=== PATIENT | female | born 1975 | race Caucasian/White ===

== ENCOUNTER 2016-11-08 10:50 | Observation (INO) | payer BC ==
--- NOTE | ~2016-11-08 | CN ---
Consultation Report [facility] [address] [place]. [address] NAME: RAMO DICKSON : 77 STATUS : ADM Gracie PAT#: [id number] AGE: 40 ADM/REG DATE : 11/08/16 MR#: [id number] REPORT SERV DATE: 11/09/16 DICTATED BY: JEANIE ESCUDERO DATE: 11/08/16 REPORT STATUS : Draft TRANSCRIBED BY: MODL DATE: 11/08/16 CONSULTATION DATE OF CONSULTATION: 11/08/2016 REASON FOR CONSULTATION: Consulted for medical management. REQUESTING PHYSICIAN: Silvia Esquivel D.P.M. PRIMARY CARE PHYSICIAN: Previously she saw Dr. Kendrick, who she states now she has no PCP. SURGEON: She is seen Charles Acevedo M.D., in the past for a near total thyroidectomy and presently is Silvia Esquivel D.P.M., for left Achilles tendon rupture repair. HISTORY OF PRESENT ILLNESS: This is a very pleasant 40-year-old, morbidly obese, female with a history of thyroid goiter, hypothyroidism a near total thyroidectomy in 03/13/2008, arthritis, endometriosis, and DJD. We have been consulted to help medical management on the patient. In the interim of post surgery for her left Achilles tendon rupture repair. It was noted that the patient had a drop in her O2 saturation when she is asleep. There is a suspect for obstructive sleep apnea. The patient's history was obtained through interview with the patient. Her brother coupled with review of [facility], [facility], therapeutic consultant's notes and old medical records. PAST MEDICAL HISTORY: 1. Hypothyroid. The patient wears glasses. 2. Morbid obesity. Weight 310 pounds 140.6 kilograms and a BMI of 51.5. 3. Cardiac murmur. 4. Thyroid goiter. 5. Oleg's thyroiditis. 6. DJD. 7. Arthritis. 8. Disk herniation at L4-L5. 9. GERD. 10.Anxiety. 11.Endometriosis. HOME MEDICATION: Aspirin 81 mg p.o. daily, Caltrate 600 plus D tablet 600 mg p.o. daily, vitamin D3 2000 units p.o. daily, levothyroxine 175 mcg p.o. at 2300 hours at night ALLERGIES: NO KNOWN ALLERGIES. SOCIAL HISTORY: The patient was previously for 12 years. She is now a , has two children. Lives with her significant other. No illicit drug use. No alcohol use. No Consultation Report [address] [place]. [address] NAME: RAMO DICKSON : 77 STATUS : ADM Gracie PAT#: [id number] AGE: 40 ADM/REG DATE : 11/08/16 MR#: [id number] REPORT SERV DATE: 11/09/16 DICTATED BY: JEANIE ESCUDERO DATE: 11/08/16 REPORT STATUS : Draft TRANSCRIBED BY: MODZainab DATE: 11/08/16 smoking. Resides in a single-level home. No problems with activity. FAMILY HISTORY: Mother had arthritis and DDD. Father had coronary artery disease, diabetes, obstructive sleep apnea on CPAP. She has one brother who has obstructive sleep apnea on CPAP. PAST SURGICAL HISTORY: 1. Hysterectomy in 2001. 2. Cholecystectomy in 2008. 3. Tonsillectomy as a child. 4. Ovarian cyst. 5. Lap surgery for endometriosis in 2004. 6. Near-total thyroidectomy 03/13/2008. REVIEW OF SYSTEMS: Negative other than what is included in HPI. The patient complains of no shortness of breath. No nausea and vomiting. No chest pain. No fever. No diarrhea or abdominal pain. PHYSICAL EXAMINATION: VITAL SIGNS: Vital signs from today blood pressure 142/82, temperature 97.1, heart rate 83, O2 saturation 97% on 2 L nasal cannula, when awake, respiratory rate 16. GENERAL: This is a morbid obese female, who is resting in bed in no acute distress. 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 NEURO: Her head is atraumatic. She is normocephalic. She is alert, oriented x3. Her cranial nerves 2-12 are grossly intact. Her mood is pleasant and appropriate. NECK: Supple. Trachea is midline. No JVD noted. No lymphadenopathy. EENT: Sclerae are nonicteric. Pupils are equal, reactive to light. Her nares are patent. Mucous membranes are moist. Her tongue is midline without deviation. Her soft palate rises equally on phonation. CHEST: There is no pain with palpation. LUNGS: Clear to auscultation bilaterally. She has normal respiratory effort. No increased work of breathing with conversation. CARDIOVASCULAR: S1, S2. No obvious murmurs, rubs, or gallops. Rhythm is regular on telemetry, at a rate of 88. ABDOMEN: Obese, soft, nontender with active bowel sounds. No palpable organomegaly. Her last bowel movement was 11/08/2016. EXTREMITIES: Right lower extremity no edema. Normal distal pulses. No calf tenderness. Left lower extremity is in a cast from the upper part of her toes to beneath her knee. SKIN: Warm and dry. No unusual rashes or lesions. Normal color and turgor. PSYCH: The patient is pleasant and cooperative. Appropriate mood and affect. SURGICAL WOUND SITE: Dressing and cast is clean, dry, and intact. LABORATORY DATA: No present labs on chart those will be ordered. She had an EKG on 10/09/2016, that showed a normal sinus rhythm and a normal EKG with a rate of 90. MRI was done of her left ankle, which showed nearly full-thickness tear of her Achilles tendon. Consultation Report [address] [place]. [address] NAME: RAMO DICKSON : 77 STATUS : ADM Gracie PAT#: [id number] AGE: 40 ADM/REG DATE : 11/08/16 MR#: [id number] REPORT SERV DATE: 11/09/16 DICTATED BY: JEANIE ESCUDERO DATE: 11/08/16 REPORT STATUS : Draft TRANSCRIBED BY: ROMAIN DATE: 11/08/16 Soft tissue edema and edema in the soleus and gastrocnemius muscles. ASSESSMENT/PLAN: 1. Obstructive sleep apnea. The patient has no history of sleep apnea. Her brother and her father does have sleep apnea and uses CPAP at home. Noted postoperatively that her O2 sats dropped to 88% when she fell asleep, when awaking to use incentive spirometer her sats were back up to 97%. She will be placed on CPAP at h.s., per RT. We will order continuous O2 saturation monitoring. Then she will probably post discharge from the hospital, need to look in to sleep monitoring and possible CPAP use at home. 2. Gastroesophageal reflux disease. Aware. She will have Mylanta p.r.n. as needed for indigestion. 3. Hypothyroidism. She has a history we are aware. She states she has no primary care doctor at the present time. She has been to outpatient clinics such as [facility] and previously saw Dr. Kendrick, who managed her thyroid medications. We will check a TSH and a free-T4 on her labs and continue her levothyroxine. 4. Elevated glucose. Spot check of blood fingerstick blood sugar was 189, but she did have Decadron in surgery, she has just returned to the floor postoperatively and ate dinner. Blood sugar was 189, we will recheck her blood sugar at 1 a.m. and staff can call if it is greater than 150. She has no previous diagnosis of diabetes. A.m. labs ordered are BMP, magnesium, CBC, TSH, free T4, and we will check hemoglobin A1c. The hospitalist group would like to thank you for this consultation and let us know if we can be of any further assistance. ROEL Jeanie Escudero NP / [id number] CC: Silvia Esquivel D.P.M.
--- NOTE | ~2016-11-08 | OP ---
Record Of Operation [facility] [address] [place]. [address] NAME: RAMO DICKSON : 77 STATUS : DIS Gracie PAT#: [id number] AGE: 41 ADM/REG DATE : 11/08/16 MR#: [id number] REPORT SERV DATE: 11/23/16 DICTATED BY: JAYESH CAMPOVERDE DATE: 11/23/16 REPORT STATUS : Draft TRANSCRIBED BY: MODL DATE: 11/23/16 DATE OF PROCEDURE: 11/08/2016 PREOPERATIVE DIAGNOSIS: Left severe Achilles rupture. POSTOPERATIVE DIAGNOSIS: Left severe Achilles rupture. PROCEDURES: 1. Left Achilles severe rupture primary repair. 2. Left flexor hallucis longus tendon transfer. 3. Left acellular dermal grafting to Achilles rupture repair. 4. Left gastroc recession. SURGEON: Ramona ButlerPYulissa. ANESTHESIA: General local anesthetic. ESTIMATED BLOOD LOSS: Minimal. COMPLICATIONS: None. INJECTABLES: Approximately 40 mL of a 1:1 mixture of 1% lidocaine plain and 0.5% Marcaine plain. MATERIALS: Include Arthrex FiberWire suture with tenodesis anchors, acellular dermal grafting, 2-0 and 4-0 Vicryl, 4-0 nylon. PROCEDURE IN DETAIL: Under mild sedation, the patient was brought to the operating room, placed on the operating room table in a prone position. Following the general anesthesia, local anesthesia was obtained about the patient's left leg. Left foot, ankle, and lower leg were scrubbed, prepped, and draped in usual aseptic manner. Attention was directed to the procedure. Procedure #1 is a left severe Achilles rupture with significant tendon gapping. Attention was directed to the posterior aspect of the patient's left Achilles tendon where an approximate 6-8 cm incision was made medial and parallel to the Achilles tendon. The incision was deepened to subcutaneous tissue with care being taken to identify and retract all vital neurovascular structures. All bleeders were cauterized and ligated as necessary. Blunt dissection was continued down to the level of the peritenon and incision was made from inferior to superior exposing the completely ruptured Achilles tendon. There was significant fracture gapping and severely calcific tendon noted within the mid substance region. The tendon itself was partially avulsed off the posterior calcaneus. Fracture gap measured approximately 6-8 cm. Due to the severity of the fracture gapping and the nonviable nature of the Achilles tendon with severe tendinosis and calcific changes, augmentation with an FHL transfer was deemed necessary. At this time, attention was directed to the next procedure. Record Of Operation [facility] [address] [place] [address] NAME: RAMO DICKSON : 77 STATUS : DIS Gracie PAT#: [id number] AGE: 41 ADM/REG DATE : 11/08/16 MR#: [id number] REPORT SERV DATE: 11/23/16 DICTATED BY: JAYESH CAMPOVERDE DATE: 11/23/16 REPORT STATUS : Draft TRANSCRIBED BY: MODL DATE: 11/23/16 Next procedure is left flexor hallucis longus tendon deep transfer into the posterior and superior aspect of the calcaneus. Attention now was directed to the FHL transfer where a blunt dissection was continued down to the level of the posterior aspect of the ankle joint. A linear capsular incision was made with care being taken to identify and retract all vital neurovascular structures. Blunt dissection was continued down to the level of flexor hallucis longus tendon sheath. Dorsiflexion and plantar flexion of the great toe revealed excursion of the tendon with deep retraction with an [place] retractor to protect the neurovascular bundle. The FHL tendon was isolated. The great toe was maximally plantar flexed and the foot was maximally plantar flexed, and then a #11 blade was utilized to sever the FHL tendon deep within the tarsal tunnel region with care being taken to bluntly retract the neurovascular bundle. Next, a FiberLoop was utilized to tag the end of the FHL tendon. The tendon was sized and the appropriate drill hole was placed in the posterior and superior aspect of the calcaneus. The tendon was then transferred with the foot in neutral position to the calcaneus exiting out the plantar aspect of the heel with tensioning. Tenodesis screw was inserted and excellent stabilization was noted. Attention now was directed to the next procedure. Next procedure is left gastroc recession. Attention now was directed to the level of the gastroc aponeurosis in superior Achilles tendon where an approximate 2 cm incision was made just medial to midline and approximately 2 to 3 cm inferior to the gastroc muscle belly. Blunt dissection was continued down to the level of the deep fascia. The deep fascia was incised from superior to inferior. Deep retraction ensued with care being taken to bluntly retract in order to protect the sural nerve. At this time, gastroc aponeurosis and superior Achilles tendon were identified. Recession was performed from medial laterally releasing the gastroc aponeurosis. Underlying soleus muscle belly was identified. Approximately 2 cm of lengthening was obtained. Attention now was redirected to the Achilles tendon. Next is left Achilles tendon repair with acellular dermal allografting. At this time, the tendon itself was reapproximated and coapted utilizing a Krackow suture technique and tenodesis screw within the posterior aspect of the calcaneus to augment the tendon itself. At this time, over-sewing with acellular dermal graft jacket was performed. All calcific and thickened tendinosis was excised. Excellent reapproximation and stabilization was present. After copious irrigation, attention was directed to closure where the deep and superficial fascial regions to each incision site was reapproximated and coapted utilizing 2 0 and 4-0 Vicryl, subcutaneous tissue was reapproximated and coapted utilizing 4-0 Vicryl, and skin was reapproximated and coapted to its incision site with 4-0 nylon. A well-padded sterile dressing and well-padded gravity equinus posterior splint were placed about the patient's left foot, ankle, and lower leg. The patient tolerated the procedure and anesthesia well and was transferred to the recovery room with vital signs stable and vascular status intact to all toes. Following a period of postoperative monitoring, the patient will be transferred to the floor and will begin DVT prophylaxis tomorrow as well. Orders were written. Strict nonweightbearing at all times and take medications as prescribed, and follow up with Dr. Campoverde in the office in 7-14 days. Record Of Operation [facility] [id number] [facility] [place]. [address] NAME: RAMO DICKSON PADDY : 77 STATUS : DIS Gracie PAT#: [id number] AGE: 41 ADM/REG DATE : 11/08/16 MR#: [id number] REPORT SERV DATE: 11/23/16 DICTATED BY: JAYESH CAMPOVERDE DATE: 11/23/16 REPORT STATUS : Draft TRANSCRIBED BY: MODL DATE: 11/23/16 ANDREA/ROMAIN Silvia Campoverde D.P.M. / [id number] CC: Silvia Campoverde D.P.M.
[~2016-11-08 10:50] MED LIST: ASAB PO; CALTRA600D PO; LEVOTHYROXIN175 MCG PO; VITAMIN D31000 UNIT PO
[2016-11-09 07:48] LABS: BASOPHILS 0.1 %; BASOPHILS ABSOLUTE 0.02 10/3/uL (0.0-0.16); EOSINOPHILS 0 %; HEMATOCRIT 42.3 % (36.0-48.0); HEMOGLOBIN 14.5 g/dL (12.0-16.0); IMMATURE GRANULOCYTES 0.5 %; IMMATURE GRANULOCYTES ABSOLUTE 0.11 10/3/uL (0.0-0.11); LYMPHOCYTES 5.7 %; LYMPHOCYTES ABSOLUTE 1.17 10/3/uL (0.67-4.30); MANUAL DIFF NO %; MEAN CORPUS HGB CONC 34.3 g/dL (32.0-36.0); MEAN CORPUSCULAR HEMOGLOB 31.2 pg (26.0-34.0); MEAN PLATELET VOLUME 9.5 fL (9.2-13.0); MONOCYTES 6.4 %; MONOCYTES ABSOLUTE 1.31 10/3/uL (0.21-1.20); NEUTROPHILS 87.3 %; NEUTROPHILS ABSOLUTE 17.82 10/3/uL (2.02-8.40); PLATELET COUNT 268 10/3/uL (150-400); RBC DISTRIBUTION WIDTH 13.2 % (12.0-16.0); RED CELL COUNT 4.65 10/6/uL (4.0-5.6); WHITE BLOOD CELLS 20.4 10/3/uL (4.5-10.5)
[2016-11-09 08:15] LABS: BUN (BLOOD UREA NITROGEN) 12 MG/DL (6-23); CHLORIDE, SERUM 100 MMOL/L (96-112); CO2 (CARBON DIOXIDE) 25 MMOL/L (24-34); CREATININE 1.01 MG/DL (0.55-1.02); FREE T4 1.52 NG/DL (0.76-1.46); GFR AFRICAN AMERICAN 81 ML/MIN (>=60); GFR NON AFRICAN AMERICAN 70 ML/MIN (>=60); GLUCOSE, SERUM 161 MG/DL (60-99); SODIUM, SERUM 136 MMOL/L (135-148); ULTRASENSITIVE TSH 0.619 MCIU/ML (0.358-3.740)
[2016-11-09 08:16] LABS: POTASSIUM, SERUM 4.7 MMOL/L (3.5-5.3)
[2016-11-09] MEDS ORDERED: PERCOCET 10/3251 TAB PO (15:40)
[2016-11-09] MEDS ORDERED: ELIQUIS 2.5 MG2.5 MG PO (15:41)
[2016-11-09] MEDS ORDERED: DIL2TAB PO (15:57)
[2016-11-09] MEDS ORDERED: PR25 PO (16:02)
== END 2016-11-09 18:16 | disposition home or self-care (01) ==
LOC: SDC 10:50 → 1SO 19:36
PROVIDERS: Nurse Practitioner Family; Podiatrist Foot & Ankle Surgery
PROC: 0LXT0ZZ Transfer Left Ankle Tendon, Open Approach (ICD-10-PCS; 2016-11-08)
PROC: 0LUP07Z Supplement Left Lower Leg Tendon with Autologous Tissue Substitute, Open Approach (ICD-10-PCS; principal; 2016-11-08 12:15)
DX: S86.012A Strain of left Achilles tendon, initial encounter (principal); F41.9 Anxiety disorder, unspecified; E03.9 Hypothyroidism, unspecified; K21.9 Gastro-esophageal reflux disease without esophagitis; M51.26 Other intervertebral disc displacement, lumbar region; Z79.82 Long term (current) use of aspirin; Z90.49 Acquired absence of other specified parts of digestive tract; Z90.89 Acquired absence of other organs; Z90.710 Acquired absence of both cervix and uterus; M19.90 Unspecified osteoarthritis, unspecified site; Z79.899 Other long term (current) drug therapy
CPT/HCPCS: 80048; 82962; 83036; 83735; 84439; 84443; 85025; 94660; A9270-GY; C1713; C1776; G0378; J0330; J0690; J1170; J2250; J2270; J2405; J2710; J3010; Q4100